=== PATIENT | female | born 1975 | race Caucasian/White ===

== ENCOUNTER 2017-06-24 17:12 | Emergency (ER) | payer OTHER ==
[2017-06-24 17:57] LABS: BILIRUBIN NEGATIVE (NEGATIVE); BLOOD 1+ Ery/uL (NEGATIVE); CLARITY SLIGHTLY HAZY (CLEAR); COLOR YELLOW (YELLOW); GLUCOSE (U) NORMAL (NORMAL); KETONE (U) NEGATIVE (NEGATIVE); LEUKOCYTES NEGATIVE Leu/uL (NEGATIVE); NITRITE POSITIVE (NEGATIVE); PROTEIN TRACE (LOW) mg/dL (NEGATIVE); SPECIFIC GRAVITY >=1.030 (1.001-1.030); UROBILINOGEN 0.2 mg/dL (0.2-1.0); pH 5.5 (5.0-9.0)
[2017-06-24 18:04] LABS: BACTERIA 3+
[2017-06-24 18:15] LABS: AMPHETAMINES NEGATIVE (NEGATIVE); BARBITURATES NEGATIVE (NEGATIVE); BENZODIAZEPINES NEGATIVE (NEGATIVE); COCAINE NEGATIVE (NEGATIVE); MARIJUANA (THC) NEGATIVE (NEGATIVE); METHADONE NEGATIVE (NEGATIVE); TRICYCLIC ANTIDEPRESSANT NEGATIVE (NEGATIVE)
== END 2017-06-24 22:03 ==
LOC: FER 17:12
PROVIDERS: Nurse Practitioner Family
DX: F10.129 Alcohol abuse with intoxication, unspecified (principal); N30.00 Acute cystitis without hematuria; E03.9 Hypothyroidism, unspecified; F32.9 Major depressive disorder, single episode, unspecified; F17.210 Nicotine dependence, cigarettes, uncomplicated
CPT/HCPCS: 36415; 80305; 81001; 87076; 87088; 87186; G0480

== ENCOUNTER 2017-06-25 18:39 | Emergency (ER) | payer OTHER ==
[2017-06-25 19:50] LABS: BASOPHIL 0 % (0-2); EOSINOPHIL 0 % (0-5); HCT 38.6 % (37.0-47.0); HGB 13.3 g/dl (12.5-16.0); LYMPHOCYTE 8.5 % (15-48); MCHC 34.5 g/dL (32.0-36.0); MCV 92.8 fL (78.0-100.0); MONOCYTE 5.1 % (0-12); MPV 8.7 fL (6.0-9.5); NEUTROPHIL 86.4 % (41-80); PLT 215 K/uL (150-400); RBC 4.16 M/uL (4.20-5.40); RDW 15.5 % (11.5-14.0); WBC 11.6 K/uL (4.0-10.5)
[2017-06-25 20:05] LABS: ALCOHOL (ETOH) MEDICAL NONE DETECTED
[2017-06-25 20:06] LABS: ALBUMIN 4.2 g/dL (3.5-5.0); BILIRUBIN - TOTAL 0.5 mg/dL (0.1-1.0); CREATININE 0.6 mg/dL (0.5-1.0); MAGNESIUM 1.92 mg/dL (1.40-2.10); PHOSPHORUS 1.1 mg/dL (2.7-4.5); POTASSIUM 3.2 mmol/L (3.5-5.1); TOTAL PROTEIN 7.2 g/dL (6.4-8.3)
[2017-06-25 20:17] LABS: FT4 (FREE T4) 0.652 ng/dL (0.93-1.70)
[2017-06-25 22:06] LABS: BILIRUBIN NEGATIVE (NEGATIVE); BLOOD 1+ Ery/uL (NEGATIVE); CLARITY HAZY (CLEAR); COLOR YELLOW (YELLOW); GLUCOSE (U) NORMAL (NORMAL); KETONE (U) NEGATIVE (NEGATIVE); LEUKOCYTES 1+ Leu/uL (NEGATIVE); NITRITE NEGATIVE (NEGATIVE); PROTEIN 1+ mg/dL (NEGATIVE)
[2017-06-25 22:10] LABS: BACTERIA 4+
== END 2017-06-25 22:49 ==
LOC: FER 18:39
PROVIDERS: Emergency Medicine Emergency Medical Services
DX: G40.409 Other generalized epilepsy and epileptic syndromes, not intractable, without status epilepticus (principal); N39.0 Urinary tract infection, site not specified; E87.6 Hypokalemia; E86.0 Dehydration; F10.239 Alcohol dependence with withdrawal, unspecified; E03.9 Hypothyroidism, unspecified; F17.210 Nicotine dependence, cigarettes, uncomplicated; Z79.899 Other long term (current) drug therapy
CPT/HCPCS: 36415; 70450; 71010; 80053; 81001; 82550; 82553; 83605; 83735; 84100; 84439; 84443; 84703; 85025; 93005; G0480; J1953; J2060; J2405